=== PATIENT | male | born 1965 | race Caucasian/White ===

== ENCOUNTER 2020-01-16 23:56 | Emergency (ER) | payer OTHER ==
[~2020-01-16] VITALS: Ht 180.3 cm; Wt 87.0 kg
[2020-01-17 00:01] VITALS: BP 151/97
[2020-01-17] MEDS ORDERED: FLUCONAZOLE 100MG TABLET PO ONE (01:00)
== END 2020-01-17 01:43 | disposition home or self-care (01) ==
LOC: ER 23:56
DX: S90.425A Blister (nonthermal), left lesser toe(s), initial encounter (principal); X58.XXXA Exposure to other specified factors, initial encounter; R03.0 Elevated blood-pressure reading, without diagnosis of hypertension; Y93.89 Activity, other specified; Y92.89 Other specified places as the place of occurrence of the external cause
CPT/HCPCS: 99283